=== PATIENT | male | born 2000 | race Two or more races ===

== ENCOUNTER 2020-05-26 21:04 | Emergency (ER) | payer SELFPAY ==
[~2020-05-26] VITALS: Ht 177.8 cm; Wt 102.1 kg
[2020-05-26 21:55] VITALS: BP 161/103
[2020-05-27] MEDS ORDERED: KETOROLAC TROMETH 60MG/2ML VIAL IM ONE (00:45)
[2020-05-27] MEDS ORDERED: diphenhdrAMINE HCL 25 MG CAP PO ONE (00:45)
[2020-05-27] MEDS ORDERED: KETOROLAC TROMETH 30 MG/ML 1ML VIAL IV ONE (00:45)
== END 2020-05-27 02:12 | disposition home or self-care (01) ==
LOC: ER 21:04
DX: F41.9 Anxiety disorder, unspecified (principal)
CPT/HCPCS: 96372; J1885